=== PATIENT | female | born 1960 | race Caucasian/White ===

== ENCOUNTER 2017-12-23 16:30 | Emergency (ER) | payer OTHER ==
[~2017-12-23] VITALS: Ht 162.6 cm; Wt 59.0 kg
[2017-12-23 16:30] VITALS: BP_SYST 176
[2017-12-23] MEDS ORDERED: NITROGLYCERIN 1 INCH (GM) OINT. TP ONE (16:45)
[2017-12-23] MEDS ORDERED: LIP40 PO (17:15)
[2017-12-23] MEDS ORDERED: WARF1TAB2 PO ×2 (17:15→17:49)
[2017-12-23] MEDS ORDERED: METO50TA7 PO (17:15)
[2017-12-23] MEDS ORDERED: FLEC50TA2 PO (17:15)
[2017-12-23] MEDS ORDERED: VIS25 PO (17:15)
[2017-12-23] MEDS ORDERED: LORA10TA7 PO (17:15)
[2017-12-23] MEDS ORDERED: FLUT16SP16 NS (17:15)
[2017-12-23] MEDS ORDERED: FURO-150 PO (17:15)
[2017-12-23] MEDS ORDERED: NITSL SL (17:15)
[2017-12-23 17:27] LABS: BASOPHILS # (AUTO) 0.1 K/uL (0.0-0.2); EOSINOPHILS # (AUTO) 0.1 K/uL (0.0-0.4); EOSINOPHILS % (AUTO) 1.1 % (0.0-4.0); HEMATOCRIT 43.3 % (36-48); HEMOGLOBIN 14.3 g/dL (12.0-16.0); LYMPHOCYTES % (AUTO) 29.3 % (20.5-51.5); MEAN CORPUSCULAR HEMOGLOBIN 36 pg (27-31); MEAN CORPUSCULAR HGB CONC 33 % (32-36); MEAN CORPUSCULAR VOLUME 108 fL (79.0-98.0); MONOCYTES # (AUTO) 0.6 K/uL (0.0-1.0); MONOCYTES % (AUTO) 8.3 % (1.7-9.3); NEUTROPHILS # (AUTO) 3.9 K/uL (1.8-7.7); NEUTROPHILS % (AUTO) 60.3 % (40.0-70.0); PLATELET COUNT (AUTO) 176 K/uL (130-430); RED BLOOD CELL COUNT(AUTO) 4.01 MIL/uL (4.2-6.2); WHITE BLOOD COUNT (AUTO) 6.7 K/uL (4.8-10.8)
[2017-12-23 17:33] LABS: CALCIUM 8.4 mg/dL (8.4-11.0); CREATININE 1.01 mg/dL (0.55-1.30); POTASSIUM 4.3 mmol/L (3.5-5.1)
[2017-12-23 17:38] LABS: ALBUMIN 3.6 g/dL (3.4-4.8)
[2017-12-23 17:42] LABS: INR 4.1 (0.8-1.2); PROTHROMBIN TIME 42.2 SECS (9.5-12.5)
[2017-12-23 17:47] LABS: BILIRUBIN,URINE NEGATIVE (NEGATIVE); BLOOD, URINE 1+ (NEGATIVE); COLOR,URINE YELLOW (YELLOW); GLUCOSE,URINE NEGATIVE (NEGATIVE); KETONES,URINE TRACE (NEGATIVE); LEUKOCYTE ESTERASE ,URINE NEGATIVE (NEGATIVE); NITRITE, URINE NEGATIVE (NEGATIVE); PROTEIN URINE 3+ (NEGATIVE); UROBILINOGEN,URINE 0.2 (0.2-1.0)
[2017-12-23 17:54] LABS: CLARITY/URINE HAZY (CLEAR)
[2017-12-23 17:55] LABS: BACTERIA,URINE FEW /HPF (None Seen); RBC,URINE 0-3 /HPF (0-3); WBC,URINE 0-3 /HPF (0-3)
[2017-12-23 17:56] LABS: MUCUS,URINE None Seen /LPF (None Seen)
[2017-12-23 20:00] VITALS: BP_SYST 146
== END 2017-12-23 20:00 | disposition short-term general hospital (02) ==
LOC: SED 16:30
DX: R07.89 Other chest pain (principal); I10 Essential (primary) hypertension; I48.91 Unspecified atrial fibrillation; Z86.73 Personal history of transient ischemic attack (TIA), and cerebral infarction without residual deficits; Z95.0 Presence of cardiac pacemaker; Z79.899 Other long term (current) drug therapy
CPT/HCPCS: 36415; 71045; 80053; 81000-TC; 83880; 84484; 85025; 85610-TC; 99285